=== PATIENT | female | born 1930 | race Caucasian/White ===

== ENCOUNTER → 2016-07-13 | Outpatient (CLI) | payer MEDICARE, BC ==
[~2016-07-13] VITALS: Ht 147.3 cm; Wt 64.9 kg
== END ==
LOC: OPSV 10:54
DX: E83.42 Hypomagnesemia (principal); N18.3 Chronic kidney disease, stage 3 (moderate)
CPT/HCPCS: 96365; 96366; J1642; J3475

== ENCOUNTER → 2016-07-16 | Outpatient (CLI) | payer MEDICARE, BC ==
[~2016-07-16] VITALS: Ht 147.3 cm; Wt 64.9 kg
== END ==
LOC: OPSV 10:53
DX: E83.42 Hypomagnesemia (principal); N18.3 Chronic kidney disease, stage 3 (moderate)
CPT/HCPCS: 96365; 96366; J1642; J3475

== ENCOUNTER → 2016-07-23 | Outpatient (CLI) | payer MEDICARE, BC ==
[~2016-07-23] VITALS: Ht 147.3 cm; Wt 64.9 kg
== END ==
LOC: OPSV 07-20 11:00
DX: E83.42 Hypomagnesemia (principal); N18.3 Chronic kidney disease, stage 3 (moderate)
CPT/HCPCS: 96365; 96366; J1642; J3475

== ENCOUNTER → 2016-07-27 | Outpatient (CLI) | payer MEDICARE, BC ==
[~2016-07-27] VITALS: Ht 147.3 cm; Wt 64.9 kg
== END ==
LOC: OPSV 10:53
DX: E83.42 Hypomagnesemia (principal); N18.3 Chronic kidney disease, stage 3 (moderate)
CPT/HCPCS: 96365; 96366; J1642; J3475

== ENCOUNTER → 2016-08-03 | Outpatient (CLI) | payer MEDICARE, BC ==
[~2016-08-03] VITALS: Ht 147.3 cm; Wt 64.9 kg
== END ==
LOC: OPSV 10:59
DX: N18.3 Chronic kidney disease, stage 3 (moderate) (principal)
CPT/HCPCS: 96365; 96366; J1642; J3475

== ENCOUNTER → 2016-08-06 | Outpatient (CLI) | payer MEDICARE, BC ==
[~2016-08-06] VITALS: Ht 147.3 cm; Wt 65.0 kg
== END ==
LOC: OPSV 10:59
DX: E83.42 Hypomagnesemia (principal); N18.3 Chronic kidney disease, stage 3 (moderate)
CPT/HCPCS: 96365; 96366; J1642; J3475

== ENCOUNTER → 2016-08-10 | Outpatient (CLI) | payer MEDICARE, BC ==
[~2016-08-10] VITALS: Ht 147.3 cm; Wt 64.9 kg
== END ==
LOC: OPSV 11:00
DX: N18.3 Chronic kidney disease, stage 3 (moderate) (principal); E83.42 Hypomagnesemia
CPT/HCPCS: 96365; 96366; J1642; J3475

== ENCOUNTER → 2016-08-13 | Outpatient (CLI) | payer MEDICARE, BC ==
[~2016-08-13] VITALS: Ht 147.3 cm; Wt 64.9 kg
== END ==
LOC: OPSV 10:54
DX: N18.3 Chronic kidney disease, stage 3 (moderate) (principal); E83.42 Hypomagnesemia
CPT/HCPCS: 96365; 96366; J1642; J3475

== ENCOUNTER → 2016-08-17 | Outpatient (CLI) | payer MEDICARE, BC ==
[~2016-08-17] VITALS: Ht 147.3 cm; Wt 64.9 kg
== END ==
LOC: OPSV 11:00
DX: E83.42 Hypomagnesemia (principal); N18.3 Chronic kidney disease, stage 3 (moderate)
CPT/HCPCS: 96365; 96366; J1642; J3475

== ENCOUNTER → 2016-08-20 | Outpatient (CLI) | payer MEDICARE, BC | LOC: OPSV 10:40 | DX: N18.3 Chronic kidney disease, stage 3 (moderate) (principal); E83.42 Hypomagnesemia | CPT/HCPCS: 96365; 96366; J1642; J3475 ==

== ENCOUNTER → 2016-08-24 | Outpatient (CLI) | payer MEDICARE, BC ==
[~2016-08-24] VITALS: Ht 147.3 cm; Wt 64.9 kg
== END ==
LOC: OPSV 10:52
DX: N18.3 Chronic kidney disease, stage 3 (moderate) (principal); E83.42 Hypomagnesemia
CPT/HCPCS: 96365; 96366; J1642; J3475

== ENCOUNTER → 2016-08-27 | Outpatient (CLI) | payer MEDICARE, BC ==
[~2016-08-27] VITALS: Ht 147.3 cm; Wt 64.9 kg
== END ==
LOC: OPSV 10:42
DX: E83.42 Hypomagnesemia (principal); N18.3 Chronic kidney disease, stage 3 (moderate)
CPT/HCPCS: 96365; 96366; J1642; J3475

== ENCOUNTER → 2016-09-03 | Outpatient (CLI) | payer MEDICARE, BC ==
[~2016-09-03] VITALS: Ht 147.3 cm; Wt 64.9 kg
== END ==
LOC: OPSV 08-31 11:00
DX: N18.3 Chronic kidney disease, stage 3 (moderate) (principal); E83.42 Hypomagnesemia
CPT/HCPCS: 96365; 96366; J1642; J3475

== ENCOUNTER → 2016-09-07 | Outpatient (CLI) | payer MEDICARE, BC ==
[~2016-09-07] VITALS: Ht 147.3 cm; Wt 64.9 kg
== END ==
LOC: OPSV 10:54
DX: E83.42 Hypomagnesemia (principal); N18.3 Chronic kidney disease, stage 3 (moderate)
CPT/HCPCS: 96365; 96366; J1642; J3475

== ENCOUNTER → 2016-09-10 | Outpatient (CLI) | payer MEDICARE, BC ==
[~2016-09-10] VITALS: Ht 147.3 cm; Wt 64.9 kg
== END ==
LOC: OPSV 10:28
DX: E83.42 Hypomagnesemia (principal); N18.3 Chronic kidney disease, stage 3 (moderate)
CPT/HCPCS: 96365; 96366; J1642; J3475

== ENCOUNTER → 2016-09-14 | Outpatient (CLI) | payer MEDICARE, BC ==
[~2016-09-14] VITALS: Ht 147.3 cm; Wt 64.9 kg
== END ==
LOC: OPSV 10:49
DX: N18.3 Chronic kidney disease, stage 3 (moderate) (principal); E83.42 Hypomagnesemia
CPT/HCPCS: 96365; 96366; J1642; J3475

== ENCOUNTER → 2016-09-17 | Outpatient (CLI) | payer MEDICARE, BC ==
[~2016-09-17] VITALS: Ht 147.3 cm; Wt 64.9 kg
== END ==
LOC: OPSV 10:53
DX: E83.42 Hypomagnesemia (principal); N18.3 Chronic kidney disease, stage 3 (moderate)
CPT/HCPCS: 96365; 96366; J1642; J3475

== ENCOUNTER → 2016-09-21 | Outpatient (CLI) | payer MEDICARE, BC ==
[~2016-09-21] VITALS: Ht 147.3 cm; Wt 65.0 kg
== END ==
LOC: OPSV 09-19 11:00
DX: N18.9 Chronic kidney disease, unspecified (principal); E83.42 Hypomagnesemia
CPT/HCPCS: 96365; 96366; J1642; J3475

== ENCOUNTER → 2016-09-24 | Outpatient (CLI) | payer MEDICARE, BC ==
[~2016-09-24] VITALS: Ht 147.3 cm; Wt 64.9 kg
[2016-09-24 11:40] LABS: HEMOGLOBIN 10.4 gm/dl (12.3-15.3); RED BLOOD COUNT 3.63 M/UL (4.00-5.10); WHITE BLOOD COUNT 5.3 K/UL (4.5-11.0)
[2016-09-24 11:57] LABS: BUN/CREATININE RATIO 40 (0-10)
== END ==
LOC: OPSV 10:44
PROVIDERS: Internal Medicine
DX: E11.9 Type 2 diabetes mellitus without complications (principal); E55.9 Vitamin D deficiency, unspecified; E78.5 Hyperlipidemia, unspecified; E83.42 Hypomagnesemia; K21.9 Gastro-esophageal reflux disease without esophagitis; N18.3 Chronic kidney disease, stage 3 (moderate)
CPT/HCPCS: 36591; 80048; 80061; 80076; 83036; 83735; 84443; 85025; 96365; 96366; J1642; J3475

== ENCOUNTER → 2016-09-28 | Outpatient (CLI) | payer MEDICARE, BC ==
[~2016-09-28] VITALS: Ht 147.3 cm; Wt 64.9 kg
== END ==
LOC: OPSV 10:59
DX: E83.42 Hypomagnesemia (principal); N18.3 Chronic kidney disease, stage 3 (moderate)
CPT/HCPCS: 96365; 96366; J1642; J3475

== ENCOUNTER → 2016-10-01 | Outpatient (CLI) | payer MEDICARE, BC | LOC: OPSV 10:42 | DX: N18.3 Chronic kidney disease, stage 3 (moderate) (principal); E83.42 Hypomagnesemia | CPT/HCPCS: 96365; 96366; J1642; J3475 ==

== ENCOUNTER → 2016-10-05 | Outpatient (CLI) | payer MEDICARE, BC ==
[~2016-10-05] VITALS: Ht 147.3 cm; Wt 64.9 kg
== END ==
LOC: OPSV 10:52
DX: E83.42 Hypomagnesemia (principal); N18.3 Chronic kidney disease, stage 3 (moderate)
CPT/HCPCS: 96365; 96366; J1642; J3475

== ENCOUNTER → 2016-10-08 | Outpatient (CLI) | payer MEDICARE, BC | LOC: OPSV 11:00 | DX: N18.3 Chronic kidney disease, stage 3 (moderate) (principal); E83.42 Hypomagnesemia | CPT/HCPCS: 96365; 96366; J1642; J3475 ==

== ENCOUNTER → 2016-10-22 | Outpatient (CLI) | payer MEDICARE, BC ==
[~2016-10-22] VITALS: Ht 147.3 cm; Wt 64.9 kg
== END ==
LOC: OPSV 11:00
DX: N18.3 Chronic kidney disease, stage 3 (moderate) (principal); E83.42 Hypomagnesemia
CPT/HCPCS: 96365; 96366; J1642; J3475

== ENCOUNTER → 2016-10-29 | Outpatient (CLI) | payer MEDICARE, BC ==
[~2016-10-29] VITALS: Ht 147.3 cm; Wt 64.9 kg
== END ==
LOC: OPSV 10:43
DX: N18.3 Chronic kidney disease, stage 3 (moderate) (principal); N39.0 Urinary tract infection, site not specified; E83.42 Hypomagnesemia
CPT/HCPCS: 81001; 96365; 96366; J1642; J3475

== ENCOUNTER → 2016-11-05 | Outpatient (CLI) | payer MEDICARE, BC | LOC: OPSV 10:46 | DX: N18.3 Chronic kidney disease, stage 3 (moderate) (principal); E83.42 Hypomagnesemia | CPT/HCPCS: 96365; 96366; J1642; J3475 ==